=== PATIENT | female | born 1960 | race Caucasian/White ===

== ENCOUNTER 2024-05-14 10:51 | Day surgery (SDC) | payer MEDICARE, OTHER ==
[~2024-05-14 10:51] MED LIST: Sodium Chloride 0.9% 10 ML Syringe FLUSH PRN
[2024-05-14] MEDS ORDERED: Propofol 200 MG/20 ML SDV ONE (11:16)
[2024-05-14] MEDS ORDERED: Midazolam 1 MG/ML 2 ML SDV ONE (11:16)
[2024-05-14] MEDS: Lactated Ringers 1,000 ML IV SCH (11:23)
== END 2024-05-14 13:36 | disposition home or self-care (01) ==
LOC: KA.SDS 10:51
PROVIDERS: ATTEND Family Medicine
DX: Z12.11 Encounter for screening for malignant neoplasm of colon (principal); K64.8 Other hemorrhoids; K21.9 Gastro-esophageal reflux disease without esophagitis; E78.5 Hyperlipidemia, unspecified; Z79.82 Long term (current) use of aspirin; Z79.899 Other long term (current) drug therapy; Z88.5 Allergy status to narcotic agent; Z87.891 Personal history of nicotine dependence
CPT/HCPCS: J2250; J2704; J7120